=== PATIENT | female | born 1945 ===

== ENCOUNTER 2019-01-03 09:41 | Outpatient (CLI) | payer OTHER ==
[~2019-01-03] VITALS: Ht 157.5 cm; Wt 107.5 kg
== END 2019-01-03 10:00 | disposition home or self-care (01) ==
LOC: OFIC 805 09:41
DX: K21.0 Gastro-esophageal reflux disease with esophagitis (principal); R09.82 Postnasal drip; R68.2 Dry mouth, unspecified